=== PATIENT | female | born 1965 | race Caucasian/White ===

== ENCOUNTER → 2017-01-30 | Outpatient (CLI) | payer OTHER | LOC: CIMAGING 09:08 | PROVIDERS: ATTEND Family Medicine | DX: Z12.31 Encounter for screening mammogram for malignant neoplasm of breast (principal) | CPT/HCPCS: G0202 ==

== ENCOUNTER 2018-10-28 15:35 | Emergency (ER) | payer OTHER ==
--- NOTE | 2018-10-28 16:02 | EDPHY ---
H & P Stated Complaint: rt ankle injury,fell forward from snowboarding aprox 1200 Time Seen by Provider: 10/28/18 15:55 HPI/ROS: CHIEF COMPLAINT: Right ankle pain HISTORY OF PRESENT ILLNESS: The patient is a 53-year-old female who fell while snowboarding about 4 hr ago and complains of persistent right ankle pain. It hurts with weight-bearing but she has been able to ambulate. She states that she twisted it because at the time when she fell she did not have her other foot buckled into the snowboard. She initially thought she may have hurt her knee but that has since felt better she is not concerned about it. No weakness or numbness. She was able to board the rest of the way down [place]. She denies other injuries. Severity: Moderate Modifying factors: Worsened by weight-bearing or walking REVIEW OF SYSTEMS: Constitutional: denies: chills, fever, recent illness, recent injury EENTM: denies: blurred vision, double vision, nose congestion Respiratory: denies: cough, shortness of breath Cardiac: denies: chest pain, irregular heart rate, lightheadedness, palpitations Gastrointestinal/Abdominal: denies: abdominal pain, diarrhea, nausea, vomiting, blood streaked stools Genitourinary: denies: dysuria, frequency, hematuria, pain Musculoskeletal: See HPI Skin: denies: lesions, rash, jaundice, bruising Neurological: denies: headache, numbness, paresthesia, tingling, dizziness, weakness Hematologic/Lymphatic: denies: blood clots, easy bleeding, easy bruising Immunologic/allergic: denies: HIV/AIDS, transplant 10 systems reviewed and negative except as noted EXAM: GENERAL: Well-appearing, well-nourished and in no acute distress. HEAD: Atraumatic, normocephalic. EYES: Pupils equal round and reactive to light, extraocular movements intact, ENT: nares patent, Moist mucous membranes. NECK: Normal range of motion, supple LUNGS: No wheezes rales or rhonchi. HEART: Regular rate and rhythm ABDOMEN: Soft, nontender, BACK: no spinal tenderness, step-offs or deformities EXTREMITIES: Mild swelling to the lateral aspect of right ankle. No malleolar tenderness. No obvious deformity. No foot pain with palpation. No knee pain or laxity. No weakness or numbness. Strong pulses distally. NEUROLOGICAL: Cranial nerves II through XII grossly intact. Normal speech. 5/ 5 strength, normal movement in all extremities, normal sensation, normal reflexes PSYCH: Normal mood, normal affect. SKIN: Warm, dry, normal turgor, no visible rashes or lesions. Source: Patient Exam Limitations: No limitations - Personal History LMP (Females 10-55): Post Menopausal Current Tetanus Diphtheria and Acellular Pertussis (TDAP): Unsure - Medical/Surgical History Hx Asthma: Yes Hx Chronic Respiratory Disease: No Hx Diabetes: No Hx Cardiac Disease: No Hx Renal Disease: No Hx Cirrhosis: No Hx Alcoholism: No Hx HIV/AIDS: No Hx Splenectomy or Spleen Trauma: No Other PMH: Med hx-Asthma,HTN, Stroke @age 32yrs of age. Surg-none - Family History Significant Family History: No pertinent family hx - Social History Smoking Status: Never smoked Alcohol Use: None Constitutional: Initial Vital Signs Temperature (C) 36.9 C 10/28/18 15:44 Heart Rate 88 10/28/18 15:44 Respiratory Rate 16 10/28/18 15:44 Blood Pressure 148/93 H 10/28/18 15:44 O2 Sat (%) 94 10/28/18 15:44 O2 Delivery Mode Room Air Allergies/Adverse Reactions: ciprofloxacin [From Cipro] Allergy (Intermediate, Verified 10/28/18 15:43) Rash Tetracyclines Allergy (Intermediate, Verified 10/28/18 15:43) Rash Home Medications: Medication Instructions Recorded Advair 250/50 (*) 10/28/18 Albuterol Hfa Anes Only 10/28/18 Aspirin 81mg (*) 10/28/18 Lisinopril 10/28/18 Singulair 10 mg (*) 10/28/18 Medical Decision Making - Diagnostics Imaging: Discussed imaging studies w/ call center trainer Radiologist Procedures: Procedure: Splint placement. A fiberglass stirrup splint was applied. After application of the splint I returned and re-examined the patient. The splint was adequately immobilizing the joint and distal to the splint the patient's circulation and sensation was intact. ED Course/Re-evaluation: We discussed the x-ray results. Patient continues to decline pain medication or prescriptions. She states that she has crutches at home and does not wish to pay for more. She tolerated stirrup splint placement. We discussed nonweightbearing until she follows up with Orthopedics. Discussed indications for returning. Differential Diagnosis: Partial list of the Differential diagnosis considered include but were not limited to; ankle fracture, ankle sprain and although unlikely based on the history and physical exam, I also considered knee injury, foot injury, arm injury, head injury. Departure - Departure Disposition: Home, Routine, Self-Care Clinical Impression: Closed right ankle fracture Qualifiers: Encounter type: initial encounter Qualified Code(s): S82.891A - Other fracture of right lower leg, initial encounter for closed fracture Condition: Fair Instructions: Ankle Fracture (ED) Referrals: Tisha Bravo DO [Primary Care Provider] - As per Instructions Cory Tijerina MD [Medical Doctor] - 5-7 days, call for appt.
[2018-10-28 17:01] VITALS: BP 153/99
== END 2018-10-28 16:45 | disposition home or self-care (01) ==
LOC: CED 15:35
PROC: 2W3QX1Z Immobilization of Right Lower Leg using Splint (ICD-10-PCS; principal; 2018-10-28)
DX: S82.891A Other fracture of right lower leg, initial encounter for closed fracture (principal); I10 Essential (primary) hypertension; V00.311A Fall from snowboard, initial encounter; Y93.23 Activity, snow (alpine) (downhill) skiing, snowboarding, sledding, tobogganing and snow tubing; Y92.838 Other recreation area as the place of occurrence of the external cause
CPT/HCPCS: 73610-PO; 99284-ER